=== PATIENT | male | born 1965 | race Caucasian/White ===

== ENCOUNTER → 2019-01-09 08:03 | Outpatient (CLI) | payer OTHER | END | disposition home or self-care (01) | LOC: D.CT 08:03 | PROVIDERS: ATTEND Thoracic Surgery (Cardiothoracic Vascular Surgery) | DX: R91.8 Other nonspecific abnormal finding of lung field (principal); C34.91 Malignant neoplasm of unspecified part of right bronchus or lung ==

== ENCOUNTER 2019-01-22 05:53 | Day surgery (SDC) | payer OTHER ==
[~2019-01-22] VITALS: Ht 167.6 cm; Wt 92.7 kg
[2019-01-22 07:17] VITALS: Ht 167.6 cm; Wt 92.7 kg
[2019-01-22] MEDS ORDERED: OMEPRAZOLE20 M1 PO (07:23)
[2019-01-22] MEDS ORDERED: TOPROL XL25 MG (07:23)
[2019-01-22] MEDS ORDERED: PHENERGAN DM SYR5 ML (07:24)
[2019-01-22] MEDS ORDERED: ZOFRAN8 MG PO (07:24)
[2019-01-22] MEDS ORDERED: ALBUTEROL SULF8.5 GM INH (07:25)
[2019-01-22] MEDS ORDERED: DECADRON4 MG PO (07:25)
[2019-01-22] MEDS ORDERED: CHEMO (07:27)
[2019-01-22 09:22] LABS: HEMATOCRIT 43.5 % (42.0-54.0); HEMOGLOBIN 14.7 g/dL (13.5-17.5); MCH 32.3 pg (26.0-34.0); MCHC 33.8 g/dL (31.0-37.0); MCV 95.6 fL (80.0-100.0); MEAN PLATELET VOLUME 10.1 fL (7.4-10.4); PLATELET COUNT 249 10x3/uL (130-400); RBC 4.55 10x6/uL (4.20-6.10); RDW 14.2 % (11.5-14.5); WBC 30.6 10x3/uL (4.8-10.8)
[2019-01-22 09:25] LABS: APTT 24.9 SECONDS (22.8-39.4); INR 0.96 (0.85-1.17); PROTIME 12.3 SECONDS (11.6-15.0)
[2019-01-22 10:05] LABS: ANISOCYTOSIS OCC; LYMPHOCYTES 11 % (15-50); MONOCYTES 2 % (2-11); NEUTROPHILS 83 % (40-80); PLATELET ESTIMATE NORMAL
--- NOTE | 2019-01-22 11:38 | NUR ---
PT TOLERATING FULL LIQUIDS AT THIS TIME, PT DENIES NAUSEA OR VOMITING. PT RESTING COMFORTABLY NO DISTRESS NOTED.
--- NOTE | 2019-01-22 11:50 | NUR ---
PT DC INSTRUCTIONS REVIEWED AT THIS TIME, PT VERBAILIZES UNDERSTANDING AND AGREES. PT IV REMOVED AT THIS TIME, INTACT, NO REDNESS OR SWELLING NOTED AT SITE.
--- NOTE | 2019-01-22 11:55 | NUR ---
PT LEAVING OPS UNIT AT THIS TIME.
[2019-01-23 16:08] LABS: ACID FAST SMEAR Negative (()); AFB SPECIMEN PROCESSING Concentration (())
[2019-01-24 13:13] LABS: FUNGUS STAIN Final report (())
== END 2019-01-22 11:55 | disposition home or self-care (01) ==
LOC: D.OPS 05:53
PROVIDERS: ATTEND Internal Medicine Pulmonary Disease
DX: R91.8 Other nonspecific abnormal finding of lung field (principal); C34.91 Malignant neoplasm of unspecified part of right bronchus or lung; F17.200 Nicotine dependence, unspecified, uncomplicated; Z85.72 Personal history of non-Hodgkin lymphomas; C77.0 Secondary and unspecified malignant neoplasm of lymph nodes of head, face and neck; I10 Essential (primary) hypertension; Z01.812 Encounter for preprocedural laboratory examination; Z79.899 Other long term (current) drug therapy

== ENCOUNTER → 2020-02-12 11:38 | Outpatient (CLI) | payer OTHER ==
[2019-01-22 07:17] VITALS: BMI 33.0
[~2020-02-12 11:38] MED LIST: ALBUTEROL SULF8.5 GM INH; CHEMO; DECADRON4 MG PO; OMEPRAZOLE20 M1 PO; PHENERGAN DM SYR5 ML; TOPROL XL25 MG; ZOFRAN8 MG PO
== END | disposition home or self-care (01) ==
LOC: D.LABREF 11:38
PROVIDERS: ATTEND Internal Medicine Pulmonary Disease
DX: Z11.59 Encounter for screening for other viral diseases (principal)

== ENCOUNTER → 2020-02-13 08:25 | Outpatient (CLI) | payer OTHER ==
[2019-01-22 07:17] VITALS: BMI 33.0
== END | disposition home or self-care (01) ==
LOC: D.RT 08:00 → D.RAD 12:45 → D.RT 13:00
PROVIDERS: ATTEND Internal Medicine Pulmonary Disease
DX: J44.9 Chronic obstructive pulmonary disease, unspecified (principal); C34.90 Malignant neoplasm of unspecified part of unspecified bronchus or lung